=== PATIENT | female | born 1955 | race Caucasian/White ===

== ENCOUNTER → 2020-05-01 | Outpatient (CLI) | payer MEDICARE, BC ==
--- NOTE | 2020-05-13 12:57 | SLEEP ---
[address] [address] SLEEP STUDY REPORT Name: DULCE NUNEZ Room: [facility]#: [id number] Admission: 05/01/20 Attend Phys: LOREN Arango Discharge: Date of : 53 Report #: [id number] THIS REPORT FOR: //name// CC: Mark Salas This study has been reviewed in its entirety by a board certified sleep specialist DATE OF SERVICE: 05/01/2020 SLEEP STUDY INDICATION FOR SLEEP STUDY: Hypertension with daytime sleepiness. INTERPRETATION: Total duration of the study is 409 minutes, out of which she was asleep for 208 minutes with an overall sleep efficiency decreased to 50.8%. Sleep onset initially occurred about 20 minutes after lying down in bed. REM onset was delayed at 356 minutes after sleep onset. N1 sleep duration was 18%, N2 duration 59%, N3 duration 12% and REM duration was 11%. We did record multiple sleep-related respiratory events. These included 6 central apneas in addition to 30 hypopneas and 31 respiratory effort-related arousals. Overall, apnea-hypopnea index was 10.4. Body position data indicates the patient was observed asleep in the supine position for 85.6 minutes. The rest of the time, the patient was in other positions. Supine apnea-hypopnea index was higher at 14.0. Mean heart rate was 77. Periodic limb movement index was normal at 1.4. Arousal index was mildly elevated to 31. The patient did have several desaturations. Overall, the patient spent 65 minutes below an O2 saturation of 90%, out of which 15 minutes were spent below an O2 saturation of 88%. IMPRESSION: Mild sleep apnea with an apnea-hypopnea index of 10.4. It appears likely that obstructive sleep apnea is a predominant disease; however, considering presence of central apneas, the possibility of underlying central apnea is also considered. There is nocturnal hypoxemia as described. The above events are more common when the patient is lying supine. RECOMMENDATIONS: 1. Recommend proceeding to a repeat sleep study for positive airway pressure titration. Until the repeat sleep study is performed, I suggest keeping her on oxygen, which I understand is already prescribed for her while asleep. 2. Clinical evaluation is recommended regarding [place] [address] SLEEP STUDY REPORT Name: DULCE NUNEZ Room: [facility]#: [id number] Admission: 05/01/20 Attend Phys: LOREN Arango Discharge: Date of : 53 Report #: [id number] This entire sleep study was reviewed by a board certified sleep physician. <ELECTRONICALLY SIGNED> By: Ricardo Arnold MD 05/13/20 [id number] Arnold MD /[email or web address]
== END ==
LOC: M.SLEEPLAB 20:52
PROVIDERS: ATTEND Registered Nurse Diabetes Educator
DX: G47.33 Obstructive sleep apnea (adult) (pediatric) (principal); G47.34 Idiopathic sleep related nonobstructive alveolar hypoventilation; I10 Essential (primary) hypertension